=== PATIENT | male | born 1960 | race Caucasian/White ===

== ENCOUNTER 2022-04-11 04:09 | Inpatient (IN) | payer OTHER ==
[~2022-04-11] VITALS: Ht 172.7 cm; Wt 87.3 kg
--- NOTE | ~2022-04-11 | DS ---
[facility] [address], [place] [address] Draft ADMISSION DATE: 04/11/2022 DISCHARGE DATE: 04/15/2022 ADMISSION DIAGNOSIS: Right hip fracture. DISCHARGE DIAGNOSIS: Right hip fracture. PROCEDURE PERFORMED DURING THIS HOSPITALIZATION: Right bipolar hemiarthroplasty with open reduction and internal fixation of greater trochanter. BRIEF HISTORY: Lynsey is a 61-year-old gentleman, who suffered a ground level fall fracturing his hip with an extremely comminuted fracture. He also had extensive osteoarthritis. He has a history of MS by his account, although the records reflect more of a myopathy of unknown origin. At any rate, he had significant weakness and atrophy both lower extremities. He was admitted to the hospital and cleared medically. Discussion of risks and benefits of surgery were discussed with him, he elected to proceed. Once consent was obtained, he was taken to the operating room. After adequate anesthesia, he underwent the above-named procedure. He tolerated this well, was taken to the recovery room and subsequently to the orthopedic floor. He did quite well postoperatively, getting up and ambulating with minimal trouble using his walker. He was able to get himself in and out of bed with one-person assist. He did not have any help at home and was felt to be a good candidate for detention facility back in [place] his home town. He was felt to be stable for discharge on the with continued inpatient rehab in [place]. He will follow up with me in 7 to 10 days. He was kept on DVT prophylaxis of SCDs, TEDs, and his Xarelto 10 mg p.o. daily. Should he have any problems, the nursing facility staff will notify me immediately. Karri Gonzalez MD BA/MODL /[id number] PATIENT NAME: LYNSEY HOLLIDAY Ashlie DISCHARGE SUMMARY DATE OF : 62 REPORT #: [id number] PHYSICIAN: KARRI GONZALEZ MD PCP: NAJMA ZHANG DO REPORT IS CONFIDENTIAL AND NOT TO BE RELEASED WITHOUT AUTHORIZATION [address] [address] Draft Copies: ~ PATIENT NAME: LYNSEY HOLLIDAY DISCHARGE SUMMARY DATE OF : 62 REPORT #: [id number] PHYSICIAN: KARRI GONZALEZ MD PCP: NAJMA ZHANG DO REPORT IS CONFIDENTIAL AND NOT TO BE RELEASED WITHOUT AUTHORIZATION
[2022-04-11] MEDS ORDERED: ALEVE220 M1 PO (04:28)
[2022-04-11] MEDS ORDERED: ALLOPURINOL300 MG PO (04:29)
[2022-04-11] MEDS ORDERED: ATENOLOL100 MG PO (04:30)
[2022-04-11] MEDS ORDERED: ADULT ASPIRIN R81 MG PO (04:31)
[2022-04-11] MEDS ORDERED: LISINOPRIL-HCT1 EACH PO (04:37)
[2022-04-11] MEDS ORDERED: NEURONTIN300 MG PO (04:37)
[2022-04-11] MEDS ORDERED: TRAZODONE HCL50 MG PO (04:38)
[2022-04-11] MEDS ORDERED: METHOCARBAMOL750 MG PO (04:38)
[2022-04-11] MEDS ORDERED: VITAMIN D325 MC2 PO (04:39)
[2022-04-11] MEDS ORDERED: SUPER TWIN EP1250 MG PO (04:40)
--- OUTSIDE RECORDS SUMMARY | 2022-04-11 05:30 | XMS ---
PreManage Notification: LYNSEY HOLLIDAY Security Hide Buffer Events No recent Security Events currently on file CRITERIA MET - [facility] - 2 Visits in 30 Days CARE PROVIDERS NAJMA ZHANG [facility] Current PHONE: Unknown MANUELA KENNEDY Family [facility] 05/04/2020-Current PHONE: Unknown Adama has no Care Guidelines for this patient. Kary VISIT COUNT (12 MO.) 2 [facility] [address] [place] [address] TOTAL 3 NOTE: Visits indicate total known visits. ED/UCC VISIT TRACKING (12 MO.) 04/11/2022 04:09 JEMIMA Jha TYPE: Emergency COMPLAINT: - HIP INJ 04/11/2022 01:36 [facility] [place] TYPE: Emergency COMPLAINT: - R hip pain 03[facility]10/[facility]22 13:[facility] [place] [facility] [place] [facility]: Emergency COMPLAINT: - Bilateral leg pain from waste down, no trauma. DIAGNOSES: - Other correction (current) drug therapy - Pain in right lower leg - Mixed hyperlipidemia - Essential (primary) hypertension - Muscular dystrophy, unspecified - Pain in left lower leg - Alcohol abuse with intoxication, unspecified - Personal history of transient ischemic attack (TIA), and cerebral infarction without residual deficits INPATIENT VISIT TRACKING (12 MO.) No inpatient visits to display in this time frame [email or web address]
--- NOTE | 2022-04-11 06:36 | NUR ---
RECEIVED REPORT FROM PATRICIA RN IN ED, PT ARRIVED VIA STRECHER, PT MOVED TO HOSPITAL BED, VITALS SIGNS OBTAINED, ADIMISSION COMPLETED, HEAD TO TOE ASSESSMENT COMPLETED, MEDS AND ORDERS REVIEWED, MEDS GIVEN PER JAN, PT PLACED IN POSITION OF COMFORT, EDUCATED TO ROOM SURROUNDINGS, FALL PREVENTION AND SAFETY, NPO STATUS AND WHY, AND PLAN OF CARE, PT VERBALIZES UNDERSTANDING. CALL LIGHT WITHIN REACH, BED IN LOWEST POSITION, SIDE RAILS RAISED, AWAITING DAY SHFIT FOR REPORT
--- NOTE | 2022-04-11 07:20 | NUR ---
SHIFT REPORT RECEIVED FROM KSENIA YOUNG. PT RESTING IN BED, WATCHING TV. PT REPORTS RIGHT HIP PAIN 04/27, PT REPOSITIONED. WARM BLANKET PROVIDED. IV FLUIDS INFUSING PER ORDER. NO OTHER NEEDS. CALL LIGHT IN REACH.
--- NOTE | 2022-04-11 08:23 | NUR ---
ASSESSMENT, VS AND I&O COMPLETED. GCS 15, A&O X4. PT HAS SCRATCHES ON BRIDGE OF NOSE AND BOTH ARMS. LUNGS ARE CLEAR IN LEFT LOBES AND HAVE EXPIRATORY WHEEZE IN RIGHT LOBES. ABD SOFT, NONTENDER, BOWEL TONES ACTIVE. CMS INTACT IN UPPER EXTREMTIES. LOWER EXTREMITIES HAVE CHRONIC WEAKNESS, PULSES INTACT, PT REPORTS TINGLING IN RIGHT LOWER EXTREMITY. IV WNL, CDI, IV FLUIDS INFUSING PER ORDER. PT REPORTS PAIN IS 4/10, TOLERABLE. MOUTH SWABS PROVIDED. NO OTHER NEEDS. CALL LIGHT IN REACH.
--- NOTE | 2022-04-11 09:30 | NUR ---
IV DRESSING CHANGED, PT TOLERATED WELL. IV FLUIDS INFUSING PER ORDER. NO OTHER NEEDS AT THIS TIME. CALL LIGHT IN REACH.
--- NOTE | 2022-04-11 10:56 | NUR ---
PT BENDS LEFT ARM OFTEN, STOPPING IV FLUIDS. NEW 20G PLACED IN LEFT FOREARM. PT TOLERATED WELL. LAB IN ROOM.
--- NOTE | 2022-04-11 12:20 | NUR ---
ASSESSMENT, VS AND I&O COMPLETED. GCS 15, A&O X4. LUNGS HAVE EXPIRATORY WHEEZING IN RIGHT LOBES. LEFT LOBES CLEAR. HEART TONES REGULAR. ABD SOFT, NONTENDER, BOWEL TONES ACTIVE. TINGLING IN RIGHT TOES, PULSE AND MOTOR INTACT. LLE CMS INTACT. DISCOLORATION TO RIGHT HIP NOTED. IVs WNL, IV FLUIDS INFUSING PER ORDER. PAIN 4/10, DENIES NEED FOR PAIN INTERVENTION. PRE SURGERY CLEANSE COMPLETED. NO OTHER NEEDS AT THIS TIME. CALL LIGHT IN REACH.
--- NOTE | 2022-04-11 13:33 | NUR ---
PT RESTING IN BED, WATCHING TV. NO NEEDS AT THIS TIME. CALL LIGHT IN REACH.
--- NOTE | 2022-04-11 13:39 | NUR ---
PT TAKEN TO SURGERY BY OR STAFF.
--- NOTE | 2022-04-11 15:23 | NUR ---
REPORT CALLED TO MED SURG.
--- NOTE | 2022-04-11 17:22 | NUR ---
Attempted to see pt, he has not returned from PACU.
--- NOTE | 2022-04-11 18:25 | NUR ---
PT ARRIVED FROM PACU. VSS, IVs WNL, RA 94%. PT HAS ABDUCTOR FOAM, CRYO, AND DRESSING D/C/I. PT STATES NO PAIN OR NAUSEA AT THIS TIME AND IS A+O. PT HRR, LSC, BTA. PT STATES NO NUMBNESS OR TINGLE IN LOWER EXTEMITIES. PEDAL PULSES PRESENT. NO FURTHER NEEDS AT THIS TIME CALL LIGHT IN REACH. WILL CONTINUE PLAN OF CARE.
--- NOTE | 2022-04-11 18:53 | NUR ---
TXA dose verified with Dr Gonzalez and infusing WNL. Scheduled toradol administered, pain states 0/[address], teds, foam between knees, SCDs. Pt A+O, CPOX in place.
--- NOTE | 2022-04-11 19:45 | NUR ---
04/11/221944 Keisha Fernandez 1740 PATIENT INTO PACU. BEDSIDE REPORT FROM ILANA YOUNG AND SONG LAY. PATIENT APPEARS TO BE AWAKE ON AND OFF. OXYGEN SATURATION 100% ON 6L WITH MASK. ENCOURAGED PATIENT NOT TO RUB EYES TO PREVENT INJURY. DRESSING TO RIGHT HIP C/D/I WITH ACTICOAT. ABDUCTION PILLOW IN PLACE. XRAY CALLED TO COLLECT HIP XRAY. 1744 TITRATED OXYGEN TO 2L MASK, OXYGEN SATURATION 99%. PATIENT REPORTS PAIN 1/10 AND VERBALIZES "FEELS LIKE THERE IS PRESSURE" PATIENT ASKING QUESTIONS APPEARS CALM AND RELAXED. PROVIDED PATIENT WITH DENTURES. 1749 PATIENT TITRATED TO ROOM AIR. BREATHING EVEN AND REGULAR. XRAY OF RIGHT HIP DONE. POSITIONED PATIENT ONTO XRAY BOARD CAUTIOUSLY WITH THREE PERSON ASSIST. PATIENT APPEARED TO TOLERATE WELL. DRESSING TO RIGHT HIP C/D/I. 1754 ILDA YOUNG PROVIDED ASSISTANCE WITH PLACING CRYO CUFF STRAPS UNDER PATIENT, PILLOW CASE PLACED OVER RIGHT HIP TO PROVIDE SURFACE BARRIER WITH ICE IN PLACE. COMPRESSION SOCKS APPLIED, PATIENT APPEARS TO HAVE STRONG PEDAL PULSE, CMS INTACT, EXTREMITIY WARM. HEEL PROTECTORS AND AMBAR FOOT PUMPS IN PLACE. PATIENT APPEARS CALM, CONTINUES TO REPORT NO CHANGE IN PAIN RATING. 1800 CALL TO MEDICAL SURGICAL FLOOR TO LET THEM KNOW WILL BE HEADING DOWN TO ROOM 121 SOON. VERBALIZED OKAY. 181 VSS WNL. DRSSING TO RIGHT HIP C/D/I. ENROUTE TO MEDICAL/SURGICAL FLOOR. 182 PROVIDED BEDSIDE REPORT WITH FAUSTO YOUNG, REVIEWED ORDERS. ANSWERED QUESTIONS AND CONCERNS. PATIENT PLACED ON SLIDER BOARD TO MOVE OVER TO BED, APPEARED TO TOLERATE WELL. DRESSING TO RIGHT HIP C/D/I, ICE IN PLACE WITH ABDUCTION PILLOW. [address] LACEY TO VERIFY TXA ORDER. [employer] ROBOTICIST HAD VERBALIZED SECOND DOSE OF TXA HAD BEEN ADMINISTERED IN OR AND DID NOT THINK ANOTHER DOSE NEEDED TO BE PROVIDED SINCE PATIENT HAD 2GM OF TXA TOTAL. ONE GRAM TXA PRE-OPERATIVE AND THEN ONE GRAM ADMINISTERED DURING SURGERY. VERIFIED WANTING A THIRD GRAM OF TXA FOR HIS ORDER THAT READS TO ADMINISTER 3 HOURS AFTER LAST DOSE. FAUSTO YOUNG ADMINISTERED TXA.
--- NOTE | 2022-04-11 20:16 | NUR ---
pt awake, alert and oriented, scraped arms healing, sl lh came out by accicetn. On room air, CPOX post OP at bedside. lungs dim at bases, abd soft floyd. due to void. pt aware, urinal at bedside. tedhose and heel scds , cryocuff in place R hip, dressing intact, edematous area, good CMS. tolerating liquids well, no emeis, aware if tolerating liquids well, will increase to regular diet in am stated understanding. no tremors noted
--- NOTE | 2022-04-11 21:35 | NUR ---
pt RESTING IN BED AWAKE. DENIES PAIN. VSS. SPO2 WNL ON RA. CPOX ON. pt STATES SCDS "FEEL WEIRD". EDUCATION PROVIDED FOR SCDS. pt VERBALIZES UNDERSTANDING. DENIES URGE TO VOID AT THIS TIME. ICE WATER REFILLED. CALL LIGHT IN REACH.
--- NOTE | 2022-04-11 22:18 | NUR ---
AWAKE, ALERT AND ORIENTED, WATCHING TV, R HIP CRYOCUFF, DRESSING CDI, FOOT PUMPTS, PATRICIA HOSE, HEEL PROTECTORS INPLACE R LEG. MEDICATED WITH SCHEDULED TYLENOL AND ULTRAM, ANCEF ABX, TOLERATED WELL,. C/O MILD ITCHING, TOLERATING LIQUIDS WELL, NO EMESIS. NO VOID YET, STAED'IKNOW WHEN I NEED TO GO, I FEEL PRESSURED AT THIST JESSICA". WILL GIVE TIME TIL 2300 OR SO AND DO BLADDER SCANNER, EXPLAINED TO PT STATED UNDERSTANDING.
--- NOTE | 2022-04-11 22:26 | NUR ---
On room air, cooperative, anxious, restless, reassured, calmed down. was scratching iv site areas L arm, covered with horace wrap to protect both SL. patent at thist rowan. denies c/o pain, "Juan comfortable" stated.
--- NOTE | 2022-04-11 23:35 | NUR ---
Went to bladder scan pt as he has not voided yet, scanner showed 475cc approx in bladder. Pt coop. all procedures explained. Noted to have increaed sanguineous drainage saturating opticot dressing, reinforced with more opsite dressing, ABD pads and horace wrap around R leg, pt coop. cryocuff back in place, Foam leg separator repositioned, urinal given to pt. will wait a few more minutes and then call Dr Gonzalez to let him know.
--- NOTE | 2022-04-11 23:54 | NUR ---
f/c 16fr inserted, draining QS medium yellow urine. procedure explained, pt cooperative. vs done bp 97/70, denies c/o pain, coop with turning Spica dressing to R hip intact. cryocuff, foam hip separator in place, eddie hose, foot pumps and heel protectors in place. Dr Gonzalez notified of above, no new orders "Juan ok with the dressing and with f/c, follow orders. Ill see him in am".
--- NOTE | 2022-04-12 | NUR ---
pt voided 550cc medium yello-orange urine. awake, watching tv, no further c/o itching when asked.
--- NOTE | 2022-04-12 02:02 | NUR ---
pt cooperative with assessment. awakes easily, medicated with Toradol and Ultram scheduled, no further drainage noted from R hip. dressing was covered with opsite, abd and horace wrap R hip. underneath sanguineous old drainage, no new drainage . cryocuff in place, eddie hose, foot pumps and heel protectors in place. f/c patent, draining . sl patent. tolerating large amounts of po fluids
--- NOTE | 2022-04-12 04:15 | NUR ---
PT ON ROOM AIR, CLEAR LUNGS, R HIP EDEMA, DRESSING WAS SATURATED W SANGUINEOUS DRAINAGE, REINFORCED WITH OPSITE, ABDS AND SPICA DRESSING, DR LACEY NOTIFIED, NO FURTHER FRESH DRAINAGE. SPICA DRESSING WAS CHANGED TO JUST R LEG TO HIS COMFORT, CRYOCUFF IN PLACE, FOAM HIP DIVIDER IN PLACE. PATRICIA HOSE, FOOT PUMPS AND HEEL PROTECTORS IN BILAT LEGS. TURNED AND REPOSITIONED, TOLERATED WELL, HAD 3 SL, R HAND SL DC'D BY PT. 2 SL PATENT. NO C/O ADVERSE REACTION TO ABX, HAS BEEN MEDICATED WITH SCHEDULED TORADOL, ULTRAM AND TYLENOL WITH GOOD PAIN RELIEF. WAS UNABLE TO URINATED, WAS BLADDER SCANNER AND F/C PLACED HE WAS STILL UNABLE TO URINATE. WILL BE DC'D THIS AM PER ORDERS, TOLERATING FLUIDS VERY WELL, TOLERATING FULL LIQUIDS, NO EMESIS. UPDATED TO REGULAR DIET THIS AM. PT TO WORK WITH PT THIS AM, USES CALL LIGHT ALERT AND ORIENTED,
--- NOTE | 2022-04-12 06:11 | NUR ---
pt alert and oriented, f/c dc'd at 0605, procedure explained, cooperative. no new drainage
--- NOTE | 2022-04-12 07:28 | OR ---
[facility] [address] [place], [place] [address] Signed DATE OF OPERATION: 04/11/2022 SURGEON: Karri Gonzalez MD PREOPERATIVE DIAGNOSES: 1. Comminuted right intertrochanteric hip fracture with subtrochanteric extension. 2. Severe degenerative joint disease, right hip. POSTOPERATIVE DIAGNOSES: 1. Comminuted right intertrochanteric hip fracture with subtrochanteric extension. 2. Severe degenerative joint disease, right hip. PROCEDURE PERFORMED: Right bipolar hemiarthroplasty with open reduction and internal fixation of the trochanter. EXTERNAL GRINDER TENDER: June Martinez PA-C. June was present and critical for all portions of procedure. ANESTHESIA: General. BLOOD LOSS: 500 mL. IMPLANTS: Vonda Echo FX size 9 stem plus 6 head and a 52 mm bipolar and two 1.7 mm Synthes cables. BRIEF HISTORY: Lynsey is a 61-year-old gentleman with a 2-year history of probable MS with progressive atrophy and loss of use of both lower extremities. He had lost substantial muscle mass and was able to walk only basically inside the house with a walker. He had severe pain in all of his muscles and his hips. He sustained a fall last night and fractured his right hip. He was taken to the hospital and transferred down here to my service. He was cleared by the Medicine Service and after discussion of risks and benefits of operative treatment, he decided to proceed. Once consent was obtained, he was taken to the operating room. After adequate anesthesia, he was placed on the operating table. All downside pressure points well padded. He was placed in left lateral decubitus position with an axillary roll. The hip was prepped and draped Electronically Signed By: KARRI GONZALEZ MD 04/12/22 0728 PATIENT NAME: LYNSEY HOLLIDAY OPERATIVE REPORT DATE OF : 62 REPORT #: [id number] PHYSICIAN: KARRI GONZALEZ MD PCP: UNASSIGNED DOCTOR REPORT IS CONFIDENTIAL AND NOT TO BE RELEASED WITHOUT AUTHORIZATION [facility] [address] [place], [place] [address] Signed in a standard sterile fashion. The hip was approached through an initially 7 inch incision centered over the greater trochanter. This was later extended out of the 4-5 cm distally. The incision was carried through skin and subcutaneous tissue. The IT band was divided longitudinally. The vastus lateralis was divided from the tip of the trochanter along the anterior femur distally. This was then elevated subperiosteally around the level of approximately where the lesser trochanter was supposed to be. It was broken and anteriorly . There was an anterior wall fragment of the greater trochanter and several fragments of the main body of the trochanter, which were displaced. The capsule was open. He had extensive fibrosis of the hip with near ankylosis. There was very little rotation of the femoral head. Once we had opened up the hip joint reflected the hip capsule anteriorly to where we could visualize things. We then made a two femoral neck cuts and removed a wafer of bone and then using a corkscrew able to get the femoral head out. It was extremely overgrown arthritic and again sclerotic. This was kept on the back table for possible bone graft use later. Once this was accomplished, we moved on to try and reduce the lesser trochanter. We placed two cables around the lesser trochanter, however, in tightening the cables down the trochanter itself broke leaving this really no purchase on the trochanter itself. We then elected to remove that wire. The attention was then turned to the proximal femur, which was opened using the Charnley awl with reflection of the anterior wall of the greater trochanter. We were able to access the canal, but still be able to estimate our length. We were trying to get the center of hip rotation in the right place. We were able then to ream up to an 11 and broached up to an 11 for a size 9 cemented stem. The 11 broach was left in position using a standard followed by high offset neck with a +6 head. We were able to reduce the hip and had good stability and good range of motion. We were able to reduce all the bone pieces. The hip was then dislocated and the trial was removed. We then placed a cement restrictor distal to the stem. Once this was accomplished, the femoral canal was pulse lavaged and packed with a hydrogen peroxide spoke sponge. The this was done over a suction catheter. Cement was mixed and reached proper consistency, the sponge was removed and the cement was injected into the canal and pressurized as best we could given the fracture. It was allowed to set up and thicken. The stem was then positioned into the femoral canal and taken down to where the collar fit similar to the broach. It was then held in position, all excess cement was removed. The cement was allowed to harden, which took about 16 minutes. Once it had hardened sufficiently, we placed the +6 head on the stem with the 52 bipolar cup and reduced the hip again good stability with this. Once this was accomplished, we were able to reduce the anterior wall of the trochanter and the greater trochanter itself. This was held in position using clamps. We then used the Vonda trochanteric plate and positioned, where it fit and held with two screws distally in an unicortical fashion. We then placed multiple 3.5 locking screws into the greater trochanter itself. Once this was accomplished, the next screw was placed distally and a single 1.7 cable was placed distally through a cable button. We were able to move the hip. There was no gross motion of the fracture fragments. The wound was copiously irrigated with normal Electronically Signed By: KARRI GONZALEZ MD 04/12/22 0728 PATIENT NAME: LYNSEY HOLLIDAY OPERATIVE REPORT DATE OF : 62 REPORT #: [id number] PHYSICIAN: KARRI GONZALEZ MD PCP: UNASSIGNED DOCTOR REPORT IS CONFIDENTIAL AND NOT TO BE RELEASED WITHOUT AUTHORIZATION [facility] [address] [place], [place] [address] Signed saline. A total of 3 L was used throughout. A 5-minute IrriSept soak was done in the middle. We then repaired the hip capsule anteriorly using #1 Vicryl. The vastus layer was closed independently from the IT band. Both were closed using #2 StrataFix, subcutaneous tissue with #0 Stratafix, and skin with landon. Wound was dressed with an Aquacel dressing, ABD, and True wrap. He tolerated the procedure well. All sponge, needle, and instrument counts were correct. Karri Gonzalez MD BA/MODL /[id number] Copies: ~ Electronically Signed By: KARRI GONZALEZ MD 04/12/22 0728 PATIENT NAME: LYNSEY HOLLIDAY OPERATIVE REPORT DATE OF : 62 REPORT #: [id number] PHYSICIAN: KARRI GONZALEZ MD PCP: UNASSIGNED DOCTOR REPORT IS CONFIDENTIAL AND NOT TO BE RELEASED WITHOUT AUTHORIZATION
--- NOTE | 2022-04-12 07:36 | NUR ---
Dr Gonzalez in room assessing pt
--- NOTE | 2022-04-12 08:00 | NUR ---
Report received from HUNG RN. Pt is awake and resting in bed. L arm IVs wrapped loosely in YAN wrap. R hip has moderate amount of sanguinous drainage. It was reinforced with ABDs and wrapped in YAN wrap by HUNG RN. Dr Gonzalez checked on Pt, didn't order dressing change, just reinforcement for now. Cryo cuff in place. No c/o pain.
[2022-04-12] MEDS ORDERED: TRIAMCINOLONE A15 G3 TOP (09:29)
--- NOTE | 2022-04-12 10:00 | NUR ---
Pt is working with PT. Tolerating well, with no pain reported. R hip has an increasing amount of sanguinous drainage. SPIKA dressing applied. Will continue to monitor.
--- NOTE | 2022-04-12 11:28 | NUR ---
R hip dressing remains CDI, no shadow drainage noted on YAN bandage. Pt reports no pain at this time.
--- NOTE | 2022-04-12 11:50 | NUR ---
Pt pulled his L AC IV by mistake.
--- NOTE | 2022-04-12 12:45 | NUR ---
Pt ate lunch. He is napping in bed. Dressing to R hip remains CDI. No shadow drainage noted.
--- NOTE | 2022-04-12 13:30 | NUR ---
Pt lives in an appt in [place]. Diagnosed with MS in 2019. Mom and siste r help him as needed with household tasks and cleaning. Family transpor t him. He is disabled and states money is short, but he is ok. Pt has a 4WW at home. Plans on admission to in [place] on dc. Denies other needs at this time. Mom will transport him home.
--- NOTE | 2022-04-12 13:41 | NUR ---
OT working with Pt. Pt is walking in the hallway with 50% weaight bearing to R foot.
--- NOTE | 2022-04-12 13:44 | NUR ---
Pt restarted on Allopurinol and Desyrel by Dr Arguello.
--- NOTE | 2022-04-12 14:55 | NUR ---
Bladder scan is 238 ml. Pt does not feel urge to void. Dr Arguello was made aware and advised to monitor Pt.
--- NOTE | 2022-04-12 16:50 | NUR ---
Dr Gonzalez notified of last 2 bladder scan results (187ml and 238ml). ordered bolus of NS.
--- NOTE | 2022-04-12 17:55 | NUR ---
Pt was able to void 450 ml of orange colored urine. L FA IV's dressing changed and it was wrapped loosely with coban.
--- NOTE | 2022-04-12 19:40 | NUR ---
SHIFT REPORT RECEIVED FROM SINCERE LEVIN AT BEDSIDE. pt AWAKE AND RESTING IN BED, ON RA. RR EVEN AND UNLABORED. ACTICOAT DRESSING TO RIGHT HIP C/D/I, CYROCUFF IN PLACE. WEDGE TO BLE ALONG WITH PATRICIA PAVAN AND SCD'S AND HEEL PROTECTORS.
--- NOTE | 2022-04-12 20:20 | NUR ---
IN TO GET VITALS, I&Os, CRYO ICE FILLED, FRESH WATER GIVEN, NO FURTHER NEEDS AT THIS TIME
--- NOTE | 2022-04-12 20:39 | NUR ---
ASSESSMENT COMPLETE, SCHEDULED MEDS GIVEN (SEE EMAR). pt REPORTS TOLERABLE PAIN NEAR LEFT KNEE, STATING, "I THINK I OVER DID IT WALKING TODAY". DENIES PAIN AT RIGHT HIP. PATRICIA BROWNE, SCD'S, HEEL PROTECTORS IN PLACE ALONG WITH WEDGE IN BETWEEN BLE. DRESSING WNL, SCANT PINPRICK SHADOWING NOTED. ABD PAD X2 AND SPIKA DRESSING REMAINS IN PLACE OVER ACTICOAT DRESSING, NOTED AT SHIFT CHANGE. CYROCUFF ALSO IN PLACE TO RIGHT HIP. CALL LIGHT IN REACH. WILL MONITOR FOR CHANGES.
--- NOTE | 2022-04-12 21:49 | NUR ---
IN ROOM TO EMPTY URINAL. PT VOIDED 500MLS OF DARK YELLOW URINE. PT DENIES FURTHER NEEDS, CALL LIGHT IS CLOSE.
--- NOTE | 2022-04-12 22:30 | NUR ---
IN ROOM TO GIVE SCHEDULED PAIN MEDICATIONS, SEE EMAR. pt REPORTS 4/10 PAIN IN RIGHT HIP. NO FURTHER NEEDS, CYROCUFF REMAINS IN PLACE. CALL LIGHT IN REACH.
--- NOTE | 2022-04-12 23:57 | NUR ---
pt RESTING IN BED ON RA, RR EVEN AND UNLABORED. NO DISTRESS NOTED. CYROCUFF REMAINS IN PLACE TO RIGHT HIP. WEDGE ALSO IN PLACE INBETWEEN BILATERAL BLE/KNEES. BED REMAINS IN LOCKED POSITION. NO DISTRESS NOTED. CALL LIGHT IN REACH. WILL CONTINUE TO MONITOR.
--- NOTE | 2022-04-13 00:40 | NUR ---
with help from electrical discharge machine operator lisa, pt up and standing next to bed for partial linen change, small amount urine noted to chucks. golden care done and pt back in bed and able to reposition self in bed. pt educated on skin safety and prevention of skin breakdown, pt verbalized understanding. wayne noted to renan, d/t hx of psoriasis. unable to view d/t current dressing-c/d/i. will monitor. no changes to right hip dressing, acticoat w/ abd pads x2 and spika dressing in place.beatrice brad to provide fresh ice to cyrocuff. bilateral scd's, eddie hose in place along with pillow abduction. pt declined heel protectors. iv site wnl, remains saline locked. call light in reach and no further needs or concerns verbalized.
--- NOTE | 2022-04-13 00:55 | NUR ---
IN TO PROVIDE PT ICE WATER AND FRESH ICE IN CRYO CUFF, NO FURTHER NEEDS AT THIS TIME
--- NOTE | 2022-04-13 03:10 | NUR ---
pt RESTING IN BED, EYES CLOSED AND ON RA. RR EVEN AND UNLABORED. NO DISTRESS NOTED. SCD'S, PATRICIA HOSE REMAINS IN PLACE WITH PILLOW WEDGE. CYROCUFF ALSO REMAINS IN PLACE. CALL LIGHT IN REACH.
--- NOTE | 2022-04-13 03:15 | NUR ---
PT'S SCD PUMP WAS BEEPING, IT IS NOW WORKING FINE. EMPTIED URINAL OF 475MLS. PT DENIES FURTHER NEEDS. CALL LIGHT IS CLOSE.
--- NOTE | 2022-04-13 04:20 | NUR ---
pt RESTING IN BED, ON RA. RR EVEN AND UNLABORED. NO DISTRESS NOTED. NO CHANGE IN pt APPEARANCE, APPEARS CALM AND RELAXED AT THIS TIME. WILL MONITOR FOR CHANGES. HOB SLIGHTLY ELEVATED, CYROCUFF REMAINS IN PLACE.
--- NOTE | 2022-04-13 05:16 | NUR ---
call light answered, pt up 1pa with fww-50% weight bearing to right hip per physical therapy orders on bsc. pt reports need to try to have a bm. call light in reach.
--- NOTE | 2022-04-13 05:24 | NUR ---
call light answered, beatrice salinas assisting pt back to bed. scd's, eddie hose, cyrocuff all in place. no change to right hip dressing, spika dressing readjusted per pt request for comfort. generalized edema and brusing noted to right hip area, some bruising also noted to right scrotum area. will continue to monitor, call light in reach.
--- NOTE | 2022-04-13 05:50 | NUR ---
SCHEDULED PAIN MEDICATIONS GIVEN FOR REPORTED 3-4/10 PAIN, SEE EMAR. NO FURTHER NEEDS, CALL LIGHT IN REACH.
--- NOTE | 2022-04-13 07:30 | NUR ---
Report received from HUNG RN. No issues reported. Pt continues voiding on his own. Dressing to R hip remains CDI with tiny specks of dried blood. SCDs on. RA.
--- NOTE | 2022-04-13 08:00 | NUR ---
Morning medications administered by student under the supervision of bedside RN. Pt reposrts pain of 2/10. Cryocuff on. RA. Pt is voiding adequately on his own.
--- NOTE | 2022-04-13 09:25 | NUR ---
PT IS UP IN CHAIR I&O AND VS CHARTED CALL LIGHT WITHIN REACH NO FURTHER TASKS AT THIS TIME
--- NOTE | 2022-04-13 10:00 | NUR ---
Pt ambulated in the hallway with PT. 50% weaight bearing to R extremity. Medicated with scheduled pain medications only with positive results. Pt is sitting in the recliner now.
--- NOTE | 2022-04-13 11:00 | NUR ---
Called Windy at [facility]. She states they are awaiting auth for this pt, but will accept him if insurance oks.Dr. Gonzalez updated.
--- NOTE | 2022-04-13 11:20 | NUR ---
Pt requested to go back to bed. He reports new pain which is now in his thigh. He attributed it to sitting in a recliner which he did for the first time after this surgery.
--- NOTE | 2022-04-13 11:36 | NUR ---
PT SITTING IN CHAIR-SAID HE WAS GLAD TO GET OUT OF BED. PT EXPLAINED THE NATURE OF HIS INJURY, FEELS WELL CARED FOR AND MENTIONED HE IS COMFORTABLE WITH STUDENTS IN. PT FEELS HE IS DOING WELL, GAVE G.POST AND BLESSING.
--- NOTE | 2022-04-13 12:15 | NUR ---
Pt is having lunch in bed. No concerns or c/o pain voiced. Cryocuff machine refilled.
--- NOTE | 2022-04-13 13:07 | NUR ---
PT IS LAYING IN BED WATCHING TV. I&O AND VS CHARTED CALL LIGHT WITHIN REACH NO FURTHER TASKS AT THIS TIME
--- NOTE | 2022-04-13 13:42 | EKG ---
[facility] [address] [place] [id number] Signed Normal sinus rhythm Left axis deviation Incomplete right bundle branch block Inferior infarct , age undetermined Cannot rule out Anterior infarct , age undetermined Abnormal ECG No previous ECGs available Confirmed by CATHLEEN NAILS MD ([id number]) on 04/13/2022 1:42:37 PM Electronically Signed By: CATHLEEN NAILS MD 04/13/22 1342 PATIENT NAME: LUNADonnellLYNSEY Electrocardiogram DATE OF : 62 PHYSICIAN: CATHLEEN NAILS MD REPORT #: [id number] REPORT IS CONFIDENTIAL AND NOT TO BE RELEASED WITHOUT AUTHORIZATION
--- NOTE | 2022-04-13 14:00 | NUR ---
Pt ambulated in the hallway with PT. 50% weight bearing to R leg. Pt ambulated around the unit.
--- NOTE | 2022-04-13 14:35 | NUR ---
Notified by Windy at [place] [facility], they will accept this pt on Saturday and have received auth from [employer]. Spoke with Dr. Arguello and he completed rx for wc and note. Faxed chart to [facility]. They will deliver wc today. Called [facility] and requested transport for Saturday afternoon. They will call me back when scheduled.
--- NOTE | 2022-04-13 15:21 | NUR ---
Left a note at the nurses stationg requestin/28 or 04/15 when orders are completed to fax orders, the covid test, progress and therapy notes for 04/14 or 04/15 and the rest of the papers on the envelope to Windy at [facility]. Fax number [phone]. Nurse to Nurse call number [phone]. Please confirm orders are accepted by [facility] prior to patient discharging. Received a call from Deborah at [facility]. She has scheduled pt for transport with [facility]. They will pick Kvng up at 11:00 am on Saturday. Transports phone number [phone].
--- NOTE | 2022-04-13 16:00 | NUR ---
Pt is napping in bed. RA. SCDs on. Wedge for hip precautions.
--- NOTE | 2022-04-13 18:10 | NUR ---
Pt continues to urinate on his own. Reports pain 1-2/10 in R thigh. Medicated with scheduled pain medications only with positive results. Dressing remains dry and intact covered by SPIKA. There's only few dry blood spots present. No active bleeding noted.
--- NOTE | 2022-04-13 19:46 | NUR ---
ALERT AND ORIENTED, ONROOM AIR, CLEAR LUNGS, HAD A BM EARLIER IN AM SHIFT. SL LA PATENT. BRUISED AND EDEMATOUS AREA R HIP AND R PENILE /SCROTUM AREA. DRESSING WITH OLD DRAINAGE, OPSITE COVERING. CRYOCUFF, SCDS, PATRICIA HOSE AND HEEL PROTECTORS INPLACE. PT MOVES , TURNS AND REPOSITIONS SELF INBED, TOLERATING DIET AND LIQUIDS WELL. NO EMESIS. CALL LIGHT AT BEDSIDE
--- NOTE | 2022-04-13 20:30 | NUR ---
IN TO GET VITALS, I&Os, NO FURTHER NEEDS AT THIS TIME
--- NOTE | 2022-04-13 23:10 | NUR ---
awakes easily, on room air, medicated with scheduled tylenol and ultram, R hip dressing pica dressing in place, bruising w/o changes. scds, tedhose, heel protecotrs cryocuff in place
--- NOTE | 2022-04-14 01:51 | NUR ---
RESTING, NO DISTRESS, CRYOCUFF R HIP, DRESSING WITH OLD DRAINAGE, EDEMATOUS BRUISED , HEMATOMA BRUISED AREAS R SCROTUM. PATRICIA BROWNE, SCDS, HEEL PROTECTORS IN PLACE. TURNS AND REPOSISITIONS SELF
--- NOTE | 2022-04-14 02:32 | NUR ---
PT AWAKES EASILY, C/O 6/10 R HIP AND WAIST PAIN, MEDICATED WITH SCHEDULED ULTRAM AND TORADOL. VOIDING QS MEDIUM YELLOW URINE. R HIP DRESSING WITH OLD DRAINAGE, COVERED WITH OPSITE, ABD ANS YAN WRAP SPICA DRESSING, PATRICIA HOSE, SCDS, HEEL PROTECTORS IN PLACE. REPOSITIONS SELF
--- NOTE | 2022-04-14 06:05 | NUR ---
IN TO GET VITALS, FRESH ICE IN CRYO, FRESH ICE WATER GIVEN, NO FURTHER NEEDS AT THIS TIME
--- NOTE | 2022-04-14 06:44 | NUR ---
pt has been sleeping off and on this shift. sl patent. on room air, clear lungs. R hip dressing intact, slight old shadowing present. foam dressing covered with opsite, abd and spica dressing, edematous and hematoma noted r hip to inside of thigh and r scrotal and penile side. kryocuff, scds tedhose and heel protectors in place, pt cooperative, helps moving in bed, medicated with scheduled tylenol,toradol and ultram with good pain results, voiding qs, tolerating liquids well.
--- NOTE | 2022-04-14 07:05 | NUR ---
Report received from HUNG YOUNG. Pt is sleeping in bed, semi fowlers. SCDs on. RA.
--- NOTE | 2022-04-14 08:38 | NUR ---
RT is performing Covid testing. Dr Gonzalez checked on Pt. He particularly evaluated hematoma and stated it was expected with the type of fall Pt had prior to Sx.
--- NOTE | 2022-04-14 08:41 | NUR ---
PATIENT UP TO CHAIR, SBA FWW. CRYO CHECKED AND PLACED BACK ON PATIENTS HIP. LINENS CHANGED. CALL LIGHT IN REACH. NO FURTHER NEEDS AT THIS TIME.
--- NOTE | 2022-04-14 09:05 | NUR ---
RT COLLECTED RAPID COVID 19 SWAB AT THIS TIME WITH NO COMPLICATIONS.
--- NOTE | 2022-04-14 09:48 | NUR ---
COVID TEST CAME BACK NEGATIVE.
--- NOTE | 2022-04-14 11:15 | NUR ---
Pt is walking in the hallway with PT. 50% weight bearing to R extremity. FWW.
--- NOTE | 2022-04-14 11:21 | NUR ---
PATIENT WORKED WITH PT. PATIENT NOW BACK TO CHAIR. VITALS AND I&O'S CHARTED. CRYO CHECKED AND GOOD. CALL LIGHT IN REACH. NO FURTHER NEEDS AT THIS TIME.
--- NOTE | 2022-04-14 12:40 | NUR ---
Pt is resting in the recliner. Voids adequately.
--- NOTE | 2022-04-14 14:31 | NUR ---
PATIENT SITTING UP IN CHAIR WATCHING TV. VITALS AND I&O'S CHARTED. CRYO FILLED. FRESH WATER GIVEN. CALL LIGHT IN REACH. NO FURTHER NEEDS AT THIS TIME.
--- NOTE | 2022-04-14 15:10 | NUR ---
Pt will be discharging to [facility] in [place] tomorrow via wheelchair van. supplemental nurse time 11 am. Nurse to nurse report # [phone]. Please refer to case manlornaer note dated 04/13/22 for further details.
--- NOTE | 2022-04-14 17:25 | NUR ---
Pt is eating dinner in the recliner. No concerns at this time.
--- NOTE | 2022-04-14 18:16 | NUR ---
PATIENT IN CHAIR WATCHING TV. VITALS AND I&O'S CHARTED. CRYO FILLED. CALL LIGHT IN REACH. NO FURTHER NEEDS AT THIS TIME.
--- NOTE | 2022-04-14 20:06 | NUR ---
PT ON ROOM AIR, CLEAR LUNGS, HAD A BM IN AM TODAY. UP IN CHAIR, R LEG DRESSING INTACT, CRYOCUFF TO R INCISION SITE, PATRICIA BROWNE AND SCDS BILAT. EDEMA TO R HIP, BRUISING R HIP, INNER THIGH AND R SCROTUM , MARBLING LOOKING COLORING NOTED BOTH LEGS, GOOD CMS, C/O MILD R LEG PAIN, MEDICATED WITH SCHEDULED TORADOL. DECLINED MOM HE HAD A BM TODAY. STATED HE IS COMOFRTABLE IN CHAIR, LEGS ELEVATED. FLUIDS AND CALL LIGHT AT HANDS REACH
--- NOTE | 2022-04-14 20:30 | NUR ---
in to assist pt back to bed, 1pa fww with R leg TTWB, urinal emptied, no further needs at this time
--- NOTE | 2022-04-14 20:49 | NUR ---
PRIMARY RN SHEILA HAD CONCERNS OF MOTTLING OF PT'S LEGS. TALKED WITH PT AND ASSESSED LEGS. PT DENIES ANY CHANGES IN SENSATION, PEDAL PULSES ARE FAINT BILATERAL, AND GOOD CAPREFILL. THE MOTTLED LOOKING SKIN IS FROM BILAT KNEES TO THIGHS AND PT'S SKIN IS COLD. PT STATES HE WAS UP IN THE CAR FOR A WHILE AND LEGS WERE UNCOVERED AND COLD. WE WILL CONTINUE TO MONITOR, PROVIDED WARM BLANKET AND SCDS ARE ON. PT DENIES FURTHER NEEDS. CALL LIGHT IS CLOSE.
--- NOTE | 2022-04-14 22:26 | NUR ---
AWAKES EASILY, NO DISTRESS, TURNS AND REPOSITIONING SELF IN BED. CRYOCUFF TO R HIP AREA, DRESSING INTACT. MEDICATED WITH SCHEDULED MEDS, 3/10 PAIN. CALL LIGHT, URINAL AND FLUIDS AT HANDS REACH
--- NOTE | 2022-04-15 01:40 | NUR ---
Pt resting, eyes closed, no distress, cryocuff to R hip dressing, spica dressing in place, edema no changes, eddie hose, heel protectors and scds in place. call light and fluids at bedside
--- NOTE | 2022-04-15 02:42 | NUR ---
Awakens easily, 4/10 R hip pain, decreaed edema, bruising still present hip and scrotum, no changes. R hip dressing intact. covered wtih spica dressing, cryocuff, heel protectors, eddie hose, scds in place, cooperative, turns and repositions self in bed. tolerating liquids well, no emesis, voiding QS yellow urine
--- NOTE | 2022-04-15 06:11 | NUR ---
Pt on room air, clear lungs, no cough, hob elevated to comfort. SL LFA patent. R hip dressing covered with adb with small amount of drainage covered with opsite and spica dressing. edematous improving, increased hematoma/bruising over R hip, and now above R golden area and all over scrotum and R penile shaft, non tender, no drainage. cryocuff to R hip dressing area, eddie hose, scds, and heel protectorss, helps with repositioning. Has been medicated ATC with scheduled Toradol, Tylenol and Ultram with good pain relief. uses urinal, voiding QS, tolerating liquids very well, no emesis fluids and call light at hands reach. pt to be dc'd today for further PT rahab to [facility], pt alert and orineted, cooperative
--- NOTE | 2022-04-15 07:30 | NUR ---
Report received from HUNG RN. Pt is sitting in the recliner waiting for breakfast. Minimal pain. RA. Cryo cuff, teds and SCDs on.
--- NOTE | 2022-04-15 07:47 | NUR ---
Called [facility] and spoke with Verenice, who states that they received all paperwork from fax and have no questions at this time.
[2022-04-15] MEDS ORDERED: ATENOLOL25 MG PO (08:27)
[2022-04-15] MEDS ORDERED: OXYCODONE HCL5 MG PO (08:27)
--- NOTE | 2022-04-15 10:17 | NUR ---
PATIENT SITTING UP IN BED AT THIS TIME. VITALS AND I&O'S CHARTED. CRYO CHECKED. CALL LIGHT IN REACH. NO FURTHER NEEDS AT THIS TIME.
--- NOTE | 2022-04-15 10:30 | NUR ---
PT MEDICATED WITH TRAMADOL BEFORE RIDE BACK TO [facility] ([facility]). [employer] SAL[employer] COUNTER MANAGER TIME 11AM. REPORT CALLED TO ARTEM AT [facility]. ICE PACK PROVIDED FOR THE RIDE.
--- NOTE | 2022-04-15 10:56 | NUR ---
Patient currently in process of discharging and unable to provide PT treatment.
--- NOTE | 2022-04-15 14:54 | NUR ---
Spoke to Windy at [facility] regarding patient DC meds. Attempted to phone Dr Gonzalez, will await call back at this time.
--- NOTE | 2022-04-15 15:38 | NUR ---
Bilingual Medical Assistant notified of Pioneer dumas questions, noted to this RN that Dr Gonzalez is out of coverage at this time. Pharmacy consulted regarding questions, pioneer dumas communicated with regarding update.
== END 2022-04-15 11:00 | DRG 522 ==
LOC: ED 04:09 → MS 05:29 → CCU 05:29 → MS 15:58
PROVIDERS: ADMIT Specialist; ATTEND Specialist
PROC: 0QS604Z Reposition Right Upper Femur with Internal Fixation Device, Open Approach (ICD-10-PCS; 2022-04-11)
PROC: 0SRR019 Replacement of Right Hip Joint, Femoral Surface with Metal Synthetic Substitute, Cemented, Open Approach (ICD-10-PCS; principal; 2022-04-11 12:00)
DX: S72.091A Other fracture of head and neck of right femur, initial encounter for closed fracture (principal); G82.20 Paraplegia, unspecified; M16.11 Unilateral primary osteoarthritis, right hip; G71.00 Muscular dystrophy, unspecified; I05.0 Rheumatic mitral stenosis; F10.10 Alcohol abuse, uncomplicated; M10.9 Gout, unspecified; E79.0 Hyperuricemia without signs of inflammatory arthritis and tophaceous disease; W01.0XXA Fall on same level from slipping, tripping and stumbling without subsequent striking against object, initial encounter; F51.04 Psychophysiologic insomnia; G89.4 Chronic pain syndrome; E78.5 Hyperlipidemia, unspecified; I10 Essential (primary) hypertension; Z91.018 Allergy to other foods; Z79.899 Other long term (current) drug therapy; Z79.82 Long term (current) use of aspirin
CPT/HCPCS: 36415; 71045; 72170; 73502; 80048; 82010; 82553; 82607; 82746; 83605; 85025; 86850; 86900; 86901; 86922; 87502; 93005; 93010; 94760; 97110; 97116; 97162; 97530; A9270; C9803; J0690; J1100; J1170; J1885; J2001; J2250; J2274; J2370; J2405; J2704; J3010; J3480; J7030; J7121; U0003